=== PATIENT | female | born 1990 | race African-American/Black ===

== ENCOUNTER 2021-02-07 05:26 | Emergency (ER) | payer OTHER ==
[~2021-02-07] VITALS: Ht 165.1 cm; Wt 124.7 kg
[2021-02-07 06:13] LABS: ABSOLUTE NEUTROPHILS 4.9 thou/uL (1.4-8.2); BASOPHILS 1.3 % (0.0-2.0); EOSINOPHILS 5.7 % (0.0-3.0); HEMATOCRIT 35.3 % (37.0-47.0); HEMOGLOBIN 11.4 gm/dL (12.0-15.0); LYMPHOCYTES 32.6 % (24.0-44.0); MCH 24.1 pg (26.0-34.0); MCHC 32.2 g/dL (28.0-37.0); MONOCYTES 4.2 % (1.0-8.0); PLATELET COUNT 251 thou/uL (150-400); POLYS 56.2 % (36.0-66.0); RBC 4.71 mil/uL (4.20-5.00); RDW 13.4 % (10.5-14.5); WBC 8.7 thou/uL (4.0-11.0)
[2021-02-07 06:29] LABS: CALCIUM 8.9 mg/dL (8.5-10.1); CREATININE 0.9 mg/dL (0.6-1.0)
[2021-02-07] MEDS ORDERED: PREDNISONE 20 M20 MG PO (08:10)
[2021-02-07 08:15] VITALS: BP 139/71
--- NOTE | 2021-02-07 09:51 | EKG ---
[place] [address] [facility] [place] [address] ELECTROCARDIOGRAM REPORT Name: KOFI KUMAR Room #: [facility] [id number] Admission: 02/07/21 Attend Phys: Discharge: 02/07/21 Date of : 86 Report #: [id number] [facility] ED Test Date: 2021-02-07 Test Time: 05:42:13 Pat Name: KOFI KUMAR Department: Room: Gender: F [employer]: : 1990 Requested By: Bladimir Nation Order Number: [id number] MD: Pawan Mckinney Measurements Intervals [place] Rate: 73 P: 23 MT: 175 QRS: -25 QRSD: 108 T: 21 QT: 392 QTc: 432 Interpretive Statements Sinus rhythm Atrial premature complex RSR' in V1 or V2, probably normal variant No previous ECG available for comparison Electronically Signed On 02-07-2021 9:51:30 CDT by Pawan Mckinney [email or web address] <ELECTRONICALLY SIGNED> By: Pawan Mckinney MD 02/07/21 [id number] Pawan Mckinney MD /EPI
== END 2021-02-07 08:15 | disposition home or self-care (01) ==
LOC: ER 05:26
PROVIDERS: Emergency Medicine
DX: J45.901 Unspecified asthma with (acute) exacerbation (principal); Z20.822 Contact with and (suspected) exposure to COVID-19